=== PATIENT | male | born 1985 | race Caucasian/White ===

== ENCOUNTER 2017-02-19 04:54 | Emergency (ER) | payer OTHER ==
[~2017-02-19] VITALS: Ht 172.7 cm; Wt 71.5 kg
[~2017-02-19 04:54] MED LIST: ALPR-411 PO; CLR10 PO; LANS30CA12 PO; POTA1080 PO; SERT-234 PO; TADA5TAB11 PO
[2017-02-19 04:57] VITALS: TEMP 36.4; Ht 172.7 cm; Wt 71.5 kg
[2017-02-19] MEDS ORDERED: KETOROLAC TROMETHAMINE 30 MG/ML VIAL IV STA (05:06)
[2017-02-19] MEDS ORDERED: ONDANSETRON INJ 2 MG/ML 2 ML VIAL IV STA (05:06)
[2017-02-19] MEDS ORDERED: HYDROmorphone INJ 2 MG/ML SYR/VIAL IV STA (05:06)
[2017-02-19 05:25] LABS: BASO % 0.2 %; BASO ABS # 0.02 K/uL (0-0.2); COMPLETE YES; HEMATOCRIT 43.3 % (42-52); IG% 0.2 %; LYMPH % 29.9 %; LYMPH ABS # 2.77 K/uL (1.2-3.4); MEAN CELL VOLUME 87.7 fL (80-100); MEAN CORPUSCULAR HEMOGLOBIN 31.6 pg (25-34); MEAN PLATELET VOLUME 8.8 fL (7.4-10.4); MONO % 8.1 %; NEUT % 60.6 %; PLATELET COUNT 277 K/uL (130-400); RED BLOOD COUNT 4.94 M/uL (4.7-6.1); WHITE BLOOD COUNT 9.26 K/uL (4.8-10.8)
[2017-02-19 05:42] LABS: BUN/CREATININE RATIO 11.5 (10-20); CALCIUM 8.9 mg/dl (8.5-10.1); CREATININE 1.26 mg/dl (0.60-1.40); POTASSIUM 3.3 mmol/L (3.5-5.1)
[2017-02-19] MEDS ORDERED: POTASSIUM CHLORIDE 10 MEQ TABCR PO STA (05:46)
[2017-02-19 05:50] LABS: MANUAL MICROSCOPIC REQUIRED? YES; REVIEW REQ? NO; URINE COLOR RED
[2017-02-19 05:51] LABS: SULFASALICYLIC ACID NEG (NEG); URINE APPEARANCE CLOUDY (CLEAR)
[2017-02-19 05:56] LABS: URINE BACTERIA NEG (NEG); URINE MUCUS PRESENT (NONE PRSENT); URINE RBC >30 /hpf (0-4)
[2017-02-19 05:57] LABS: ZZUR CULT IF INDIC CLEAN CATCH YES
[2017-02-19] MEDS ORDERED: OXYCODONE IR HOME PACK PO ONE (06:30)
[2017-02-19] MEDS ORDERED: ONDANSETRON HOME PACK 4MG OD TAB PO ONE (06:30)
--- NOTE | 2017-02-19 06:43 | EMERGENCY ROOM VISIT NOTE ---
History First contact with patient: 04:59 Chief Complaint: KIDNEY STONE Stated Complaint: KIDNEY STONE History of Present Illness The patient is a 31 year old male who presents to the Emergency Room with complaints of right flank pain that raised his groin was history kidney stones and saw his urologist the other day and has a known 3 mm stone. Pain currently 8 out of 10. Nothing makes it better or worse. It radiates to his groin. Described as aching. Patient has had stent placement in the past. Patient states he Has a long-standing history of kidney stones. He follows with urology back in [place], [place] near [place]. Patient has appointment tomorrow with his urologist. Patient states the Lortabs are not helping and is requesting something stronger. He has been taking his Flomax. Patient states he can take OxyIR and Dilaudid. Patient denies chest pain, dyspnea, fever, chills, vomiting, diarrhea, urinary symptoms, testicular pain, penile pain. He has had multiple CAT scans in the past. Patient did taken Azo to help out with his kidney stone pain. Review of Systems See HPI for pertinent positives & negatives. A total of 10 systems reviewed and were otherwise negative. Past Medical/Surgical History Medical Problems: (1) Anxiety (2) Kidney stones Surgical Problems: (1) History of cardiac catheterization Family History Patient reports no known family medical history. Social History Smoking Status: Never Smoker Smokeless Tobacco Use: No Alcohol Use: occasionally Drug Use: none Marital Status: Housing Status: lives with family Occupation Status: employed Current/Historical Medications Scheduled Lansoprazole (Prevacid), 30 MG PO DAILY Loratadine (Claritin), 10 MG PO DAILY Potassium Citrate (Urocit-K), 1 TAB PO BID Sertraline (Zoloft), 100 MG PO DAILY Tadalafil (Cialis), 10 MG PO UD Scheduled PRN Alprazolam (Xanax), 0.5 MG PO DAILY PRN for ANXIETY Physical Exam Vital Signs Date Time Temp Pulse Resp B/P (MAP) Pulse Ox O2 Delivery O2 Flow Rate FiO2 02/19/17 04:57 36.4 96 18 135/76 98 Room Air Physical Exam VITALS: Vitals are noted on the nurse's note and reviewed by myself. Vital signs stable. GENERAL: Pleasant male writhing in pain, in no acute distress, nondiaphoretic, well-developed well-nourished. SKIN: Capillary reflex less than 2 seconds. HEENT: Normocephalic. PERRLA. EOMI. Nares patent. Mucous membranes moist. Neck is supple without nuchal rigidity. HEART: Regular rate and rhythm without murmurs gallops or rubs. LUNGS: Clear to auscultation bilaterally without wheezes, rales or rhonchi. No retractions or accessory muscle use. ABDOMEN: Positive bowel sounds x 4. Normal tympanic percussion. Soft, nontender, without masses or organomegaly. Irvin sign negative. No guarding or rebound tenderness. No CVA tenderness MUSCULOSKELETAL: No gross musculoskeletal defects. No pedal edema. No calf tenderness. NEURO: Patient was alert and oriented to person place and time. Normal sensation to light and sharp touch. No focal neurological deficits. Medical Decision & Procedures Laboratory Results 02/19/17 05:15 Red Blood Count 4.94, Mean Corpuscular Volume 87.7, Mean Corpuscular Hemoglobin 31.6, Mean Corpuscular Hemoglobin Concent 36.0, Mean Platelet Volume 8.8, Neutrophils (%) (Auto) 60.6, Lymphocytes (%) (Auto) 29.9, Monocytes (%) (Auto) 8.1, Eosinophils (%) (Auto) 1.0, Basophils (%) (Auto) 0.2, Neutrophils # (Auto) 5.61, Lymphocytes # (Auto) 2.77, Monocytes # (Auto) 0.75, Eosinophils # (Auto) 0.09, Basophils # (Auto) 0.02 02/19/17 05:15 Test 02/19/17 05:15 White Blood Count 9.26 K/uL (4.8-10.8) Red Blood Count 4.94 M/uL (4.7-6.1) Hemoglobin 15.6 g/dL (14.0-18.0) Hematocrit 43.3 % (42-52) Mean Corpuscular Volume 87.7 fL (80-100) Mean Corpuscular Hemoglobin 31.6 pg (25-34) Mean Corpuscular Hemoglobin Concent 36.0 g/dl (32-36) Platelet Count 277 K/uL (130-400) Mean Platelet Volume 8.8 fL (7.4-10.4) Neutrophils (%) (Auto) 60.6 % Lymphocytes (%) (Auto) 29.9 % Monocytes (%) (Auto) 8.1 % Eosinophils (%) (Auto) 1.0 % Basophils (%) (Auto) 0.2 % Neutrophils # (Auto) 5.61 K/uL (1.4-6.5) Lymphocytes # (Auto) 2.77 K/uL (1.2-3.4) Monocytes # (Auto) 0.75 K/uL (0.11-0.59) Eosinophils # (Auto) 0.09 K/uL (0-0.5) Basophils # (Auto) 0.02 K/uL (0-0.2) RDW Standard Deviation 38.0 fL (36.4-46.3) RDW Coefficient of Variation 12.0 % (11.5-14.5) Immature Granulocyte % (Auto) 0.2 % Immature Granulocyte # (Auto) 0.02 K/uL (0.00-0.02) Urine Color RED Urine Appearance CLOUDY (CLEAR) Urine pH (4.5-7.5) Urine Specific [place] 1.030 (1.000-1.030) Urine Protein NEG (NEG) Urine Glucose (UA) (NEG) Urine Ketones (NEG) Urine Occult Blood (NEG) Urine Nitrite (NEG) Urine Bilirubin (NEG) Urine Urobilinogen (NEG) Urine Leukocyte Esterase (NEG) Urine RBC >30 /hpf (0-4) Urine WBC 10-30 /hpf (0-5) Urine Epithelial Cells 0-5 /lpf (0-5) Urine Bacteria NEG (NEG) Urine Mucus PRESENT (NONE PRSENT) Anion Gap 6.0 mmol/L (3-11) Est Creatinine Clear Calc Drug Dose 81.4 ml/min Estimated GFR () 86.9 Estimated GFR (Non- 75.0 BUN/Creatinine Ratio 11.5 (10-20) Calcium Level 8.9 mg/dl (8.5-10.1) Medications Administered Medications (Trade) Dose Ordered Sig/Kristine Route Start Time Stop Time Status Last Admin Dose Admin Ketorolac Tromethamine (Toradol Inj) 30 mg NOW STAT IV 02/19/17 05:06 02/19/17 05:08 DC 02/19/17 05:16 30 MG Hydromorphone HCl (Dilaudid Inj) 1 mg ONE STAT IV 02/19/17 05:06 02/19/17 05:08 DC 02/19/17 05:16 1 MG Ondansetron HCl (Zofran Inj) 4 mg NOW STAT IV 02/19/17 05:06 02/19/17 05:08 DC 02/19/17 05:16 4 MG Potassium Chloride (Klor-Con M10) 20 meq NOW STAT PO 02/19/17 05:46 02/19/17 05:47 DC 02/19/17 06:13 20 MEQ ED Course Prior records/ancillary studies reviewed. Triage Nursing notes reviewed. Additional history obtained from the family. The patient's history was concerning for right flank pain. Differential diagnosis: Etiologies such as renal colic, appendicitis, diverticulitis, mesenteric ischemia, aortic pathology, infections, inflammatory bowel disease, PUD, biliary pathology, UTI, as well as others were entertained. Physical examination findings: As above. ER treatment provided: Dilaudid, Zofran, home pack of OxyIR, Zofran On reassessment the patient felt better. Diagnostic interpretation by me: The labs revealed stable H&H. No worrisome elected abnormality. Urinalysis revealed hematuria with minimal white blood cells. Patient had no urinary symptoms. Culture was placed. Patient would rather wait for the urine culture results then start antibiotics and I felt this is reasonable an option. most likely the white blood cells are from the numerous red blood cells present. Imaging studies: KUB with no free air or obstruction. Per my interpretation. Ultrasound concerning for right renal hydronephrosis. US RENAL: Right moderate hydroureteronephrosis. A distal obstructive process is not excluded. Consider CT urogram for further investigation. 4 mm interpolar level left renal stone, nonobstructing. No hydronephrosis on the left. Bladder is decompressed. Radiologist: Nabeel Arellano M.D. It appears that the patient has isolated renal colic from a right sided stone. Patient's pain was under control. He is advised to strain his urine until the stone passes. He is advised to follow-up tomorrow as scheduled with his urologist and to take medications as directed. He is advised to return to the ER immediately for severe pain, fevers, vomiting, worsening signs or symptoms or as needed. Patient did not have acute abdomen on exam. He is well- appearing. He was afebrile and nontoxic. No urine infection. By the evaluation outlined above emergent etiologies such as appendicitis, diverticulitis, mesenteric ischemia, aortic pathology, infections, inflammatory bowel disease, PUD, biliary pathology, UTI, as well as others were deemed relatively unlikely. Patient was given a copy of his results on a disc and advised to bring this tomorrow to his appointment with his urologist. The pt informed about the findings as listed above. All questions were answered and pleased with the treatment. Return instructions were outlined and the patient was discharged in stable condition. Outpatient prescription management: Oxy IR 5mg 1-2 po Q4 hrs prn Zofran Referral: The patient was referred back to their urologist tomorrow as scheduled for a recheck of the current condition. Case reviewed with my attending The chart was completed utilizing [employer] Speech voice recognition software. Grammatical errors, random word insertions, pronoun errors, and incomplete sentences are an occassional consequence of this system due to software limitations, ambient noise, and hardware issues. Any formal questions or concerns about the content, text, or information contained within the body of this dictation should be directly addressed to the physician assistant shift supervisor for clarification. Medical Decision As above [place] Drug Monitoring Program Search Results: patient reviewed within database, no issues identified Medication Reconcilliation Current Medication List: was personally reviewed by me Blood Pressure Screening Patient's blood pressure: Normal blood pressure Impression Primary Impression: Renal colic on right side Additional Impression: Kidney stone Departure Information Dispostion Home / Self-Care Condition GOOD Referrals No Doctor, Assigned (PCP) Patient Instructions [facility] Additional Instructions DO NOT drive, drink alcohol, operate machinery, or perform dangerous activities today. You were given medications in the ER that can affect your ability to safely function or operate a vehicle. Oxycodone Immediate Release (OxyIR) 5mg: Take 1-2 pills every four hours for pain. Avoid alcohol, operating machinery or dangerous equipment, working on ladders or roofs, DRIVING, or situations where being under the influence may be dangerous. It is recommended to use an iijk-tde-cwrijfy stool softener such as Colace, 100mg twice daily while taking this medication to avoid constipation. Zofran 4 mg: Take one every six hours as needed for nausea. Avoid alcohol, operating machinery or dangerous equipment, working on ladders or roofs, DRIVING , or situations where being under the influence may be dangerous. Ibuprofen(Motrin, Advil) may be used for fever or pain. Use 600mg every six hours as needed. Take with food. Avoid using more than 2400mg in a 24 hour period. Do not use 2400mg per day for more than three consecutive days without physician direction. Prolonged inappropriate use can lead to stomach upset or ulcers. This medication can be taken if you need to drive, work, or perform activities which may be dangerous when taking narcotic pain medication. (AND/OR) Acetaminophen(Tylenol) may be used for fever or pain. Use 1000mg every six hours as needed. Avoid using more than 3000mg in a 24 hour period. This medication can be taken if you need to drive, work, or perform activities which may be dangerous when taking narcotic pain medication. Strain your urine and collect all the stones or debris for the urologists. Rest and avoid strenuous activity until your stone passes and symptoms resolve. Drink plenty of fluids. Continue current medications. Return to the ER for worsening abdominal or back pain, vomiting, fevers, passing out, or as needed. Follow up with your urologist as scheduled tomorrow. Problem Qualifiers
[2017-02-19] MEDS ORDERED: OXYC1TAB3 PO (06:46)
[2017-02-19] MEDS ORDERED: ONDA4TAB10 SL (06:46)
[2017-02-19 06:53] VITALS: BP 121/70; PULSE 80; O2SAT 97
--- NOTE | 2017-02-19 06:57 | DIAGNOSTIC IMAGING REPORT ---
(RENAL)RETROPERITON COMP HISTORY: Flank pain flank pain, hx stones COMPARISON: CT 04/19/2013 FINDINGS: Right kidney: Maximum dimension 11.1 cm. Moderate hydronephrosis and proximal right hydroureter. Normal corticomedullary differentiation and cortical thickness. Left kidney: Maximum dimension 11.2 cm. No evidence for hydronephrosis. 4 mm nonobstructing mid pole calcification. Normal corticomedullary differentiation and cortical thickness. Bladder: 1. Mild right renal hydronephrosis and hydroureter.. 2. Nonobstructing left renal calcification. IMPRESSION: Normal renal ultrasound. The above report was generated using voice recognition software. It may contain grammatical, syntax or spelling errors. Electronically signed by: Kannan Beckman M.D. 02/19/2017 6:56 AM Dictated Date/Time: 02/19/2017 6:55 AM
--- NOTE | 2017-02-19 07:22 | DIAGNOSTIC IMAGING REPORT ---
KUB CLINICAL HISTORY: Flank pain. FINDINGS: 2 AP supine abdominal radiographs are compared to study dated 07/29/2013. There is a nonobstructed abdominal bowel gas pattern noting mild colonic fecal retention. No evidence of intraperitoneal free air is seen on these supine views. A 4 mm calcification projects over the right vesicoureteral junction. Given the history of flank pain this likely represents an obstructing distal ureteral calculus. No additional abdominal calcifications are identified. There is no evidence of organomegaly or mass effect. The bony structures appear intact. IMPRESSION: 1. A 4 mm linear calcification projecting over the right vesicoureteral junction likely represents an obstructing kidney stone. 2. No additional abnormal calcifications are identified. 3. Nonobstructed abdominal bowel gas pattern. Electronically signed by: Yovani Queen M.D. 02/19/2017 7:21 AM Dictated Date/Time: 02/19/2017 7:19 AM
== END 2017-02-19 06:54 | disposition home or self-care (01) ==
LOC: C.EDB 04:55 → C.EDA 06:54
DX: N20.0 Calculus of kidney (principal); F41.9 Anxiety disorder, unspecified; Z87.442 Personal history of urinary calculi; Z98.61 Coronary angioplasty status; Z79.899 Other long term (current) drug therapy